=== PATIENT | female | born 1980 | race Caucasian/White ===

== ENCOUNTER 2023-03-04 11:25 | Emergency (ER) | payer BC ==
[2023-03-04] MEDS ORDERED: Lidocaine 1% with EPINEPHrine 1:100,000 50 ML MDV INFILT ONE (12:47)
[2023-03-04] MEDS ORDERED: Bacitracin Oint 1 GM U/D Packet TOP ONE (14:12)
== END 2023-03-04 14:17 | disposition home or self-care (01) ==
LOC: JP.ED 11:25
DX: L03.314 Cellulitis of groin (principal); J45.909 Unspecified asthma, uncomplicated
CPT/HCPCS: 10060; 99282